=== PATIENT | female | born 1935 | race Hispanic/Latino ===

== ENCOUNTER 2018-08-19 21:55 | Emergency (ER) | payer MEDICARE ==
[~2018-08-19] VITALS: Ht 160 cm; Wt 112.5 kg
[2018-08-19] MEDS ORDERED: DIATRIZOATE MEGL/DIATRIZOA SOD 30 ML BTL PO ONE (22:16)
--- OUTSIDE RECORDS SUMMARY | 2018-08-19 22:17 | XMS REPORT ---
Author [facility] Address Unknown Phone Unavailable Care Team Providers Care Rda Name Role Phone Unavailable Unavailable Payers Payer Name Policy Type Policy Number Effective Date Expiration Date Problems This patient has no known problems. Allergies, Adverse Reactions, Alerts Allergy Name Allergy Type Status Severity Reaction(s) Onset Date Inactive Date Treating Clinician Comments No Known Allergies DA Active U 2018-07-12 00:00:00 Medications This patient has no known medications. Results Test Description Test Time Test Comments Text Results Atomic Results Result Comments - CONT INJ GS/ DU/ JJ/ GG 2018-07-12 07:18:00 FAX: Britta De La Garza [phone] [place]: St: REG Name: [facility] : 1935 Age/S: 83/F [address] Unit #: [id number] Loc: [place] [address] Phys: Britta Rivera MD Acct: [id number] Dis Date: Status: REG ER PHONE #: [phone] Exam Date: 07/12/2018 0649 FAX #: [phone] Reason: peg tube lacement EXAMS: CPT CODE: [id number] CONT INJ GS/ DU/ [place]/ [place] [id number] HISTORY: peg tube placement TECHNIQUE: AP abdomen x-ray before and after Gastrografin administration via PEG tube COMPARISON: None FINDINGS: PEG tube projected over the proximal stomach. Administered oral contrast opacifies the gastric fundus. No contrast extravasation is observed. Nonobstructed bowel gas pattern. No intra- abdominal mass effect. Pelvic vascular calcifications. IVC filter. Degenerative changes of the spine and hips. IMPRESSION: PEG tube positioned within the stomach. at 0718 Reported and signed by: Shannan Cruz D.O. CC: Britta Seay MD Technologist: Cony Vegas(Lazaro) Trnscrd Date/Time/By: 07/12/2018 (0718) : By: [email or web address] Orig Print D/T: S: 07/12/2018 (0713) PAGE 1 Signed Report
--- NOTE | 2018-08-19 22:57 | Diagnostic Imaging Report ---
EXAM: ABDOMEN-1VIEW (KUB), DATE: 08/19/2018 9:59 PM INDICATION: Percutaneous gastrostomy tube placement. COMPARISON: None FINDINGS: 30 cc of Gastrografin were administered via PEG tube. LINES/TUBES: Percutaneous gastrostomy tube. Bird's nest filter. BOWEL PATTERN: No evidence for obstruction. Contrast is present within the stomach and duodenum, without extra luminal contrast extravasation. SOFT TISSUES: No abnormal calcifications. No mass effect. LUNG BASES: Not included BONES: No acute findings. IMPRESSION: Gastrostomy tube in adequate position in the gastric antrum. No extra luminal contrast extravasation. Signed by: Dr. Ricardo Zhang M.D. on 08/19/2018 10:54 PM
--- NOTE | 2018-08-19 23:13 | NUR ---
REPORT CALLED TO [facility]
[2018-08-19 23:18] VITALS: BP 95/71
== END 2018-08-20 01:02 ==
LOC: ER 22:15
DX: Z43.1 Encounter for attention to gastrostomy (principal); Z93.0 Tracheostomy status; Z99.11 Dependence on respirator [ventilator] status; E11.9 Type 2 diabetes mellitus without complications; J44.9 Chronic obstructive pulmonary disease, unspecified; K21.9 Gastro-esophageal reflux disease without esophagitis; Z86.73 Personal history of transient ischemic attack (TIA), and cerebral infarction without residual deficits
CPT/HCPCS: 74018; 94002; 99284

== ENCOUNTER 2018-09-08 15:57 | Emergency (ER) | payer MEDICARE ==
[~2018-09-08] VITALS: Ht 147.3 cm; Wt 61.2 kg
[2018-09-08] MEDS ORDERED: DIATRIZOATE MEGL/DIATRIZOA SOD 30 ML BTL PO ONE (16:59)
--- NOTE | 2018-09-08 17:52 | Diagnostic Imaging Report ---
EXAM: Abdomen 1 View INDICATION: Gastrostomy tube placement ^g tube placement; 20 cc gastrograph then wait 5 min for kub COMPARISON: 08/19/2018 FINDINGS: See impression. IMPRESSION: Poor quality study, likely due to motion. Contrast injected through the gastrostomy tube with opacification of the stomach and part of the duodenum. No definite evidence of leak. Nonobstructive bowel gas pattern. Degenerative changes of spine. Right femoral hardware is visualized. IVC filter in place. Signed by: Dr. Thierry Boss MD on 09/08/2018 5:49 PM
--- NOTE | 2018-09-08 18:29 | Diagnostic Imaging Report ---
EXAM: Abdomen 1 View INDICATION: ^g tube placement ^[id number] ^1800 COMPARISON: Same day abdominal x-ray. FINDINGS: See impression. IMPRESSION: Contrast is now visualized within small bowel loops and probably proximal ascending colon. Decreased contrast within expected location of stomach. No definite evidence of leak. Signed by: Dr. Thierry Boss MD on 09/08/2018 6:25 PM
--- NOTE | 2018-09-08 19:51 | NUR ---
JOSE AT [facility] NOTIFIED OF NEED TO TRANSFER
[2018-09-08 21:05] VITALS: BP 151/83
== END 2018-09-08 21:07 ==
LOC: ER 15:57
DX: Z43.1 Encounter for attention to gastrostomy (principal); E78.5 Hyperlipidemia, unspecified; J96.10 Chronic respiratory failure, unspecified whether with hypoxia or hypercapnia; Z86.73 Personal history of transient ischemic attack (TIA), and cerebral infarction without residual deficits
CPT/HCPCS: 74018; 99284

== ENCOUNTER 2019-06-30 13:09 | Emergency (ER) | payer MEDICARE ==
[~2019-06-30] VITALS: Ht 147.3 cm; Wt 61.2 kg
[2019-06-30 13:55] VITALS: BP 119/69
[2019-06-30] MEDS ORDERED: DIATRIZOATE MEGL/DIATRIZOA SOD 30 ML BTL PO ONE (14:00)
--- NOTE | 2019-06-30 14:38 | Diagnostic Imaging Report ---
EXAM: Abdomen 1 Views INDICATION: ^WITH GASTRO FOR G-TUBE PLACEMENT ^[id number] ^1405 COMPARISON: KUB 09/08/2018 and 08/18/2018 FINDINGS: Lines/tubes: J-tube overlying the upper abdomen and midline which demonstrates to be in the stomach after contrast administration. Moderate amount of stool in the colon. No dilated loops of small bowel. No renal calculi. No abnormal soft tissue masses. Unchanged IVC filter to the right of L2 vertebral body. Advanced degenerative changes in the lumbar spine and pelvis. IMPRESSION: G-tube within the stomach. Signed by: Dr. Jeannine Wilkins M.D. on 06/30/2019 2:35 PM
== END 2019-06-30 14:57 | disposition home or self-care (01) ==
LOC: ER 13:09
DX: Z43.1 Encounter for attention to gastrostomy (principal); J96.10 Chronic respiratory failure, unspecified whether with hypoxia or hypercapnia; Z86.73 Personal history of transient ischemic attack (TIA), and cerebral infarction without residual deficits
CPT/HCPCS: 74018; 99283

== ENCOUNTER 2019-06-30 22:25 | Emergency (ER) | payer MEDICARE ==
[~2019-06-30] VITALS: Ht 147.3 cm; Wt 61.2 kg
[2019-06-30] MEDS ORDERED: DIATRIZOATE MEGL/DIATRIZOA SOD 30 ML BTL PO ONE (22:52)
--- NOTE | 2019-06-30 23:35 | Diagnostic Imaging Report ---
EXAM: KUB - 1 view INDICATION: Gastrostomy tube replacement. COMPARISON: KUB 06/30/2019. FINDINGS/IMPRESSION: Gastrostomy tube terminates in the stomach with contrast opacifying the stomach and proximal duodenum. There is contrast within the colon. Nonobstructive bowel gas pattern. No evidence of free intraperitoneal air. Unchanged IVC filter to the right of L2 vertebral body. Signed by: Dr. Justo Reece MD on 06/30/2019 11:32 PM
--- NOTE | 2019-06-30 23:43 | NUR ---
[facility] CALLED FOR TRANSPORT, ETA 20 MINUTES.
[2019-06-30 23:49] VITALS: BP 124/83
--- NOTE | 2019-07-01 00:20 | NUR ---
BEDSIDE REPORT GIVEN TO [facility] AT THIS TIME; PATIENT TO BE TRANSPORTED ON EMT VENT AND [facility]ID[facility] MONITOR.
--- NOTE | 2019-07-01 00:22 | NUR ---
REPORT CALLED TO [facility] AT [facility], INFORMED OF PT STATUS AND EMS ON SITE NOW TO TAKE PT.
== END 2019-07-01 00:25 ==
LOC: ER 22:25
DX: Z43.1 Encounter for attention to gastrostomy (principal); J96.10 Chronic respiratory failure, unspecified whether with hypoxia or hypercapnia; E78.5 Hyperlipidemia, unspecified; Z86.73 Personal history of transient ischemic attack (TIA), and cerebral infarction without residual deficits
CPT/HCPCS: 74018; 99284